=== PATIENT | female | born 1985 | race Caucasian/White ===

== ENCOUNTER 2016-09-05 10:21 | Emergency (ER) | payer SELFPAY ==
--- NOTE | 2016-09-05 10:51 | ED ---
Nausea/Vomiting/Diarrhea HPI - General Chief complaint: Nausea/Vomiting/Diarrhea Stated complaint: FLU LIKE SYMPTOMS Source: patient Mode of arrival: ambulatory Limitations: no limitations - History of Present Illness Initial comments: Patient is a 31-year-old female presents for evaluation for body aches, nonproductive cough, sore throat, nausea, vomiting over the past 2-3 days. Past medical history as below. Patient states that she did not get her flu shot this year. She developed the a for mention symptoms 2-3 days ago. She states that she has aches all over her body. She has a very sore throat states that it is hard for her to swallow. She is very nauseous. She has thrown up 4 times with phlegm/stomach contents. States that she feels very weak and fatigued. No documented fevers at home. She does have chills. No urinary symptoms. No diarrhea. No abdominal pain. Positive sick contacts of her son. Patient states that she has a known history of anxiety. She is tearful at bedside and states that she cannot miss work. Does not have a primary care physician and states that she needs to follow-up with someone. She denies headaches, changes in vision, chest pain, shortness of breath, abdominal pain, pain burning with urination. - Related Data Home Medications Medication Instructions Recorded Confirmed Diazepam [Valium] 5 mg PO ONCE PRN 09/05/16 09/05/16 Percocet(Unknown) 1 tab PO ONCE PRN 09/05/16 09/05/16 Previous Rx's Medication Instructions Recorded Ondansetron Odt [Zofran Odt] 4 mg PO Q12HR PRN #10 tab 09/05/16 Allergies Allergy/AdvReac Type Severity Reaction Status Date / Time No Known Allergies Allergy Verified 09/05/16 10:54 Review of Systems ROS Statement: Those systems with pertinent positive or pertinent negative responses have been documented in the HPI. ROS Other: All systems not noted in ROS Statement are negative. Past Medical History Past Medical History: Fibromyalgia History of Any Multi-Drug Resistant Organisms: None Reported Past Surgical History: Appendectomy, Section Additional Past Surgical History / Comment(s): left ovary removed Past Psychological History: Anxiety, Depression Smoking Status: Current every day smoker Past Alcohol Use History: Rare Past Drug Use History: None Reported General Exam Limitations: no limitations General appearance: alert, in no apparent distress, other (Tearful at bedside) Head exam: Present: atraumatic, normocephalic, normal inspection Eye exam: Present: normal appearance, PERRL, EOMI. Absent: scleral icterus, conjunctival injection, periorbital swelling ENT exam: Present: normal exam, mucous membranes dry, other (Posterior oropharynx is erythematous. No tonsillar swelling or exudates.) Neck exam: Present: normal inspection, lymphadenopathy, other (Bilateral nontender anterior cervical lymphadenopathy). Absent: tenderness, meningismus Respiratory exam: Present: normal lung sounds bilaterally, other (Clear bilaterally. No wheezes rales or rhonchi.). Absent: respiratory distress, wheezes, rales, rhonchi, stridor Cardiovascular Exam: Present: regular rate, normal rhythm, normal heart sounds. Absent: systolic murmur, diastolic murmur, rubs, gallop, clicks GI/Abdominal exam: Present: soft, normal bowel sounds, other (Abdomen is soft and nontender. Negative Brooks sign. Negative McBurney sign. Negative Rovsing sign. No peritoneal signs.). Absent: distended, tenderness, guarding, rebound, rigid Extremities exam: Present: normal inspection, full ROM, normal capillary refill. Absent: tenderness, pedal edema, joint swelling, calf tenderness Back exam: Present: normal inspection Neurological exam: Present: alert, oriented X3, CN II-XII intact Psychiatric exam: Present: normal affect, normal mood Skin exam: Present: warm, dry, intact, normal color. Absent: rash Course Vital Signs 09/05/16 09/05/16 10:29 12:59 Temperature 97.8 F 98.7 F Pulse Rate 78 73 Respiratory 17 16 Rate Blood Pressure 110/68 105/70 O2 Sat by Pulse 99 100 Oximetry Medical Decision Making - Medical Decision Making Patient presents for evaluation for flulike symptoms. Is anxious and tearful at bedside because she states that she cannot miss work and is having a lot of stress at home. Positive sick contacts with similar symptoms. Did not get a flu shot this year. She said having 2 days of these symptoms. We'll order basic labs with urinalysis, IV fluids, Toradol, Decadron, Zofran and reevaluate. -Laboratory studies as below. Largely unremarkable. Influenza negative. No evidence of urinary tract infection. Not . We'll reevaluate once fluids complete that she starting to feel little bit better and is not tearful. 1240: Reevaluated the patient. She states that she feels better. Her throat is a little bit less sore in her body aches are a little less as well. No longer nauseous. No episodes of vomiting here. Discussed that the patient most likely has a viral illness. Does not appear to be influenza at this time but her symptoms are roughly consistent. Encourage plenty of fluids. Tylenol and Motrin when necessary pain. We'll discharge home with a course of Zofran for nausea and vomiting. Encourage frequent handwashing. [place] diet. We'll provide a primary care physician for follow-up. Discussed signs and symptoms on when to return to the emergency department for further evaluation. Comfortable with discharge home and follow-up. - Lab Data Result diagrams: 09/05/16 11:20 09/05/16 11:20 Lab Results 09/05/16 09/05/16 09/05/16 Range/Units 11:20 11:20 11:20 WBC 6.4 (3.8-10.6) k/uL RBC 4.33 (3.80-5.40) m/uL Hgb 12.9 (11.4-16.0) gm/dL Hct 39.0 (34.0-46.0) % MCV 90.3 (80.0-100.0) fL MCH 29.8 (25.0-35.0) pg MCHC 33.0 (31.0-37.0) g/dL RDW 15.1 (11.5-15.5) % Plt Count 257 (150-450) k/uL Neutrophils % 68 % Lymphocytes % 19 % Monocytes % 8 % Eosinophils % 1 % Basophils % 1 % Neutrophils # 4.3 (1.3-7.7) k/uL Lymphocytes # 1.2 (1.0-4.8) k/uL Monocytes # 0.5 (0-1.0) k/uL Eosinophils # 0.1 (0-0.7) k/uL Basophils # 0.1 (0-0.2) k/uL Sodium 142 (137-145) mmol/L Potassium 4.4 (3.5-5.1) mmol/L Chloride 108 H (98-107) mmol/L Carbon Dioxide 23 (22-30) mmol/L Anion Gap 11 mmol/L BUN 17 (7-17) mg/dL Creatinine 0.70 (0.52-1.04) mg/dL Est GFR (MDRD) Af Amer >60 (>60 ml/min/1.73 sqM) Est GFR (MDRD) Non-Af >60 (>60 ml/min/1.73 sqM) Glucose 81 (74-99) mg/dL Calcium 9.2 (8.4-10.2) mg/dL Magnesium 1.8 (1.6-2.3) mg/dL Urine Color Urine Appearance (Clear) Urine pH (5.0-8.0) Ur Specific [place] (1.001-1.035) Urine Protein (Negative) Urine Glucose (UA) (Negative) Urine Ketones (Negative) Urine Blood (Negative) Urine Nitrate (Negative) Urine Bilirubin (Negative) Urine Urobilinogen (<2.0) mg/dL Ur Leukocyte Esterase (Negative) Urine WBC (0-5) /hpf Ur Squamous Epith Cells (0-4) /hpf Urine Bacteria (None) /hpf Urine Mucus (None) /hpf Urine HCG, Qual (Not Detectd) Influenza Type A RNA Not Detected (Not Detectd) Influenza Type B (PCR) Not Detected (Not Detectd) 09/05/16 09/05/16 Range/Units 11:20 11:20 WBC (3.8-10.6) k/uL RBC (3.80-5.40) m/uL Hgb (11.4-16.0) gm/dL Hct (34.0-46.0) % MCV (80.0-100.0) fL MCH (25.0-35.0) pg MCHC (31.0-37.0) g/dL RDW (11.5-15.5) % Plt Count (150-450) k/uL Neutrophils % % Lymphocytes % % Monocytes % % Eosinophils % % Basophils % % Neutrophils # (1.3-7.7) k/uL Lymphocytes # (1.0-4.8) k/uL Monocytes # (0-1.0) k/uL Eosinophils # (0-0.7) k/uL Basophils # (0-0.2) k/uL Sodium (137-145) mmol/L Potassium (3.5-5.1) mmol/L Chloride (98-107) mmol/L Carbon Dioxide (22-30) mmol/L Anion Gap mmol/L BUN (7-17) mg/dL Creatinine (0.52-1.04) mg/dL Est GFR (MDRD) Af Amer (>60 ml/min/1.73 sqM) Est GFR (MDRD) Non-Af (>60 ml/min/1.73 sqM) Glucose (74-99) mg/dL Calcium (8.4-10.2) mg/dL Magnesium (1.6-2.3) mg/dL Urine Color Yellow Urine Appearance Cloudy H (Clear) Urine pH 6.0 (5.0-8.0) Ur Specific [place] 1.016 (1.001-1.035) Urine Protein Negative (Negative) Urine Glucose (UA) Negative (Negative) Urine Ketones Negative (Negative) Urine Blood Negative (Negative) Urine Nitrate Negative (Negative) Urine Bilirubin Negative (Negative) Urine Urobilinogen <2.0 (<2.0) mg/dL Ur Leukocyte Esterase Negative (Negative) Urine WBC 1 (0-5) /hpf Ur Squamous Epith Cells 9 H (0-4) /hpf Urine Bacteria Rare H (None) /hpf Urine Mucus Rare H (None) /hpf Urine HCG, Qual Not Detected (Not Detectd) Influenza Type A RNA (Not Detectd) Influenza Type B (PCR) (Not Detectd) Disposition Clinical Impression: Viral illness Disposition: HOME SELF-CARE Condition: Good Instructions: Viral Syndrome (ED) Prescriptions: Ondansetron Odt [Zofran Odt] 4 mg PO Q12HR PRN #10 tab PRN Reason: Nausea And Vomiting Referrals: None,Stated [Primary Care Provider] - 1-2 days Daniel Neely DO [STAFF PHYSICIAN] - 1-2 days
[2016-09-05] MEDS ORDERED: ONDANSETRON 4 MG/2 ML VIAL IVP STA (10:59)
[2016-09-05] MEDS ORDERED: KETOROLAC 30 MG/ML 1 ML VIAL IVP STA (10:59)
[2016-09-05] MEDS ORDERED: SODIUM CHLORIDE 0.9% 1,000 ML IV ONE (10:59)
[2016-09-05] MEDS ORDERED: DEXAMETHASONE SOD PHOSPHATE 10 MG/ML 1 ML VIAL IV STA (10:59)
[2016-09-05 11:46] LABS: Basophils # (A) 0.1 k/uL (0-0.2); Basophils % (A) 1 %; CH 28.7; CHCM 31.9; Eosinophils # (A) 0.1 k/uL (0-0.7); Eosinophils % (A) 1 %; HDW 2.51; HGB 12.9 gm/dL (11.4-16.0); Luc # (Auto) 0.21; Luc % (Auto) 3; Lymphocytes # (A) 1.2 k/uL (1.0-4.8); Lymphocytes % (A) 19 %; MCH 29.8 pg (25.0-35.0); MCV 90.3 fL (80.0-100.0); Mean Platelet Volume 7.9; Monocytes # (A) 0.5 k/uL (0-1.0); Monocytes % (A) 8 %; Neutrophils # (A) 4.3 k/uL (1.3-7.7); Neutrophils % (A) 68 %; RBC 4.33 m/uL (3.80-5.40); RDW 15.1 % (11.5-15.5); WBC 6.4 k/uL (3.8-10.6); WBC (Perox) 6.38
[2016-09-05 11:47] LABS: Appearance,Urine Cloudy (Clear); Bacteria,Urine Rare /hpf; Bilirubin,Urine Negative (Negative); Glucose,Urine (UA) Negative (Negative); Ketones,Urine Negative (Negative); Leukocyte Esterase,Urine Negative (Negative); Mucus,Urine Rare /hpf; Nitrite,Urine Negative (Negative); Particle Count 3661; Protein,Urine Negative (Negative); Specific Gravity,Urine 1.016 (1.001-1.035); Squamous Epithelial Cell,Urine 9 /hpf (0-4); UA Billing (MACRO vs. MICRO) MICRO; Urobilinogen,Urine <2.0 mg/dL (<2.0); WBC,Urine 1 /hpf (0-5)
[2016-09-05 12:00] LABS: Anion Gap 11 mmol/L; Blood Urea Nitrogen 17 mg/dL (7-17); Calcium 9.2 mg/dL (8.4-10.2); Carbon Dioxide 23 mmol/L (22-30); Chloride 108 mmol/L (98-107); Glucose 81 mg/dL (74-99); Magnesium 1.8 mg/dL (1.6-2.3); Non-African American GFR(MDRD) >60 (>60 ml/min/1.73 sqM); Potassium 4.4 mmol/L (3.5-5.1); Sodium 142 mmol/L (137-145)
[2016-09-05 13:00] VITALS: BP 105/70; PULSE 73; RESP 16; TEMP 98.7
== END 2016-09-05 13:04 | disposition home or self-care (01) ==
LOC: EC 10:21
DX: B34.9 Viral infection, unspecified (principal); F17.200 Nicotine dependence, unspecified, uncomplicated
CPT/HCPCS: 99284; 96374; 96375 ×2; 96361; 36415; 80048; 83735; 85025; 81001; 81025; 87502; J1100; J2405; J1885

== ENCOUNTER 2017-04-06 10:05 | Emergency (ER) | payer OTHER ==
[2017-04-06] MEDS ORDERED: IPRATROPIUM-ALBUTEROL 3 ML NEB INHALATION STA (10:38)
--- NOTE | 2017-04-06 10:41 | ED ---
General Adult HPI - General Chief complaint: Upper Respiratory Infection Stated complaint: Cough Time Seen by Provider: 04/06/17 10:34 Source: patient, RN notes reviewed Mode of arrival: ambulatory Limitations: no limitations - History of Present Illness Initial comments: Patient is a pleasant 32-year-old female presenting to the emergency Department with cough and sore throat. Onset of symptoms was a couple of days ago. Patient has generalized body aches. Patient states she has congestion in her chest. Patient does feels short of breath. Patient states she has occasional mild sputum. Patient is unclear whether or not she has fevers. Patient complains of lumps in her throat that are tender and points to her lymph nodes. Sore throat discomfort increases with swallowing. - Related Data Previous Rx's Medication Instructions Recorded Albuterol Inhaler [Ventolin Hfa 2 puff INHALATION Q4HR PRN #1 04/06/17 Inhaler] inhaler Azithromycin [Zithromax Z-pack] 250 mg PO DIRECTED #6 tab 04/06/17 Allergies Allergy/AdvReac Type Severity Reaction Status Date / Time No Known Allergies Allergy Verified 04/06/17 10:32 Review of Systems ROS Statement: Those systems with pertinent positive or pertinent negative responses have been documented in the HPI. ROS Other: All systems not noted in ROS Statement are negative. Constitutional: Reports: other (Myalgias) Eyes: Denies: eye pain ENT: Reports: throat pain, congestion. Denies: ear pain Respiratory: Reports: cough, dyspnea Cardiovascular: Denies: chest pain Endocrine: Denies: fatigue Gastrointestinal: Denies: abdominal pain Genitourinary: Denies: dysuria Musculoskeletal: Denies: back pain Skin: Denies: rash Neurological: Denies: weakness Past Medical History Past Medical History: Fibromyalgia Additional Past Medical History / Comment(s): Ovarian cancer History of Any Multi-Drug Resistant Organisms: None Reported Past Surgical History: Appendectomy, Section, Tubal Ligation Additional Past Surgical History / Comment(s): left ovary removed Past Psychological History: Anxiety, Depression Smoking Status: Current every day smoker Past Alcohol Use History: Rare Past Drug Use History: None Reported General Exam Limitations: no limitations General appearance: alert, in no apparent distress Head exam: Present: atraumatic Eye exam: Present: normal appearance, PERRL ENT exam: Present: other (Mild pharyngeal erythema) Neck exam: Present: tenderness (Tender lymph nodes anterior posterior cervical) , lymphadenopathy. Absent: meningismus Respiratory exam: Present: rhonchi Cardiovascular Exam: Present: regular rate, normal rhythm GI/Abdominal exam: Present: soft. Absent: tenderness Extremities exam: Present: normal inspection. Absent: calf tenderness Back exam: Present: normal inspection Neurological exam: Present: alert Psychiatric exam: Present: normal affect, normal mood Skin exam: Present: normal color Course Vital Signs 04/06/17 04/06/17 04/06/17 10:09 11:08 11:17 Temperature 97.9 F Pulse Rate 107 H 100 96 Respiratory 22 Rate Blood Pressure 112/74 O2 Sat by Pulse 100 Oximetry Medical Decision Making - Radiology Data Radiology results: image reviewed (Bronchitis. No pneumonia) Disposition Clinical Impression: Bronchitis, Pharyngitis Disposition: HOME SELF-CARE Condition: Stable Instructions: Acute Bronchitis (ED) Additional Instructions: Please follow-up with primary care physician in the next couple of days for recheck. Return for difficulty in breathing, uncontrolled fever, worsening symptoms or other concerns. Discontinue smoking. [id number] Tylenol and Motrin as needed. Prescriptions: Albuterol Inhaler [Ventolin Hfa Inhaler] 2 puff INHALATION Q4HR PRN #1 inhaler PRN Reason: Dyspnea Azithromycin [Zithromax Z-pack] 250 mg PO DIRECTED #6 tab Referrals: Zoey Zimmerman MD [REFERRING] - 1-2 days Caity Evans MD [STAFF PHYSICIAN] - 1-2 days Time of Disposition: 11:50
[2017-04-06] MEDS ORDERED: ACETAMINOPHEN TAB 325 MG TAB PO STA (10:50)
[2017-04-06] MEDS ORDERED: IBUPROFEN 400 MG TAB PO STA (10:50)
--- NOTE | 2017-04-06 11:29 | XR ---
EXAMINATION TYPE: XR chest 2V DATE OF EXAM: 04/06/2017 HISTORY: cough. REFERENCE: NONE. FINDINGS: There are mild, increased perihilar markings. There is no focal consolidation. The heart is not enlarged. Pleural spaces are clear. IMPRESSION: FINDINGS CONSISTENT WITH BUT NOT DIAGNOSTIC OF BRONCHITIS.
[2017-04-06 12:00] VITALS: BP 98/59; PULSE 70; RESP 18; TEMP 98.6
== END 2017-04-06 11:58 | disposition home or self-care (01) ==
LOC: EC 10:05
DX: J40 Bronchitis, not specified as acute or chronic (principal); J02.9 Acute pharyngitis, unspecified; F17.200 Nicotine dependence, unspecified, uncomplicated; Z85.43 Personal history of malignant neoplasm of ovary; Z90.721 Acquired absence of ovaries, unilateral
CPT/HCPCS: 71020; 94640; 99283

== ENCOUNTER 2019-04-13 15:31 | Inpatient (IN) | payer OTHER ==
[2019-04-13] MEDS ORDERED: LORazepam 2 MG/ML INJ IM STA ×2 (16:12→20:17)
[2019-04-13 17:02] LABS: Basophils # (A) 0.1 k/uL (0-0.2); Basophils % (A) 1 %; Eosinophils # (A) 0.2 k/uL (0-0.7); Eosinophils % (A) 2 %; HCT 42.1 % (34.0-46.0); HGB 13.3 gm/dL (11.4-16.0); Lymphocytes # (A) 2.3 k/uL (1.0-4.8); Lymphocytes % (A) 23 %; MCH 30.1 pg (25.0-35.0); MCHC 31.5 g/dL (31.0-37.0); MCV 95.6 fL (80.0-100.0); Monocytes # (A) 0.4 k/uL (0-1.0); Monocytes % (A) 4 %; Neutrophils # (A) 6.6 k/uL (1.3-7.7); Neutrophils % (A) 66 %; Platelet Count 228 k/uL (150-450); RBC 4.41 m/uL (3.80-5.40); RDW 14.7 % (11.5-15.5)
[2019-04-13 17:04] LABS: Appearance,Urine Cloudy (Clear); Bilirubin,Urine Negative (Negative); Blood,Urine Trace (Negative); Calcium Oxalate Crystals,Urine Rare /hpf; Color,Urine Yellow; Glucose,Urine (UA) Negative (Negative); Ketones,Urine Negative (Negative); Leukocyte Esterase,Urine Negative (Negative); Mucus,Urine Few /hpf; Nitrite,Urine Negative (Negative); Protein,Urine Trace (Negative); RBC,Urine 22 /hpf (0-5); Specific Gravity,Urine 1.029 (1.001-1.035); Squamous Epithelial Cell,Urine 13 /hpf (0-4); WBC,Urine 3 /hpf (0-5)
[2019-04-13] MEDS ORDERED: ACTIVATED CHARCOAL 50 GM/240 ML BOTTLE PO STA (17:04)
[2019-04-13 17:12] LABS: Acetaminophen <10.0 ug/mL; African American GFR (CKD) >90 (>60 ml/min/1.73 sqM); Alcohol <10 mg/dL; Anion Gap 10 mmol/L; Blood Urea Nitrogen 10 mg/dL (7-17); Calcium 9.3 mg/dL (8.4-10.2); Carbon Dioxide 20 mmol/L (22-30); Chloride 110 mmol/L (98-107); Glucose 80 mg/dL (74-99); Salicylate 28.6 mg/dL; Sodium 140 mmol/L (137-145)
[2019-04-13 17:15] LABS: Amphetamine Screen,Urine Detected (NotDetected); Barbiturate Screen,Urine Not Detected (NotDetected); Benzodiazepines Screen,Urine Not Detected (NotDetected); Cocaine Screen,Urine Not Detected (NotDetected); Methadone Screen, Urine Not Detected (NotDetected); Opiate Screen,Urine Not Detected (NotDetected); Oxycodone Screen, Urine Not Detected (NotDetected); Phencyclidine Screen,Urine Not Detected (NotDetected); Tricyclic Antidepressant,Urine Not Detected (NotDetected); Urn Cannabinoid Scrn Not Detected (NotDetected)
[2019-04-13] MEDS ORDERED: NEOMYCIN-BACITRACIN-POLY OINT 1 APPLIC/EACH PACKET TOPICAL STA (18:36)
--- NOTE | 2019-04-13 18:36 | ED ---
Psych HPI - General Chief Complaint: Psychiatric Symptoms Stated Complaint: Mental Health Time Seen by Provider: 04/13/19 16:04 Source: patient, family Mode of arrival: ambulatory - History of Present Illness Initial Comments: This 34-year-old white female presents with a complaint of severe depression with suicidal ideations. She states that she has a long-standing history of depression but it is been worse over the last 1 month. She states that she cut her left arm today. She also took some Tylenol and aspirin. She states that she took approximately 4 Tylenol and 6 aspirin 2 hours prior to arrival. She states that she just does not want to be here anymore. She also feels very anxious. She does not take any medications for her psychiatric conditions. She was told in the past that she was diagnosed with bipolar disorder as well as posttraumatic stress disorder. She denies any current medical complaints. She denies any possibility of . No other complaints or modifying factors. - Related Data Home Medications Medication Instructions Recorded Confirmed No Known Home Medications 04/13/19 04/13/19 Allergies Allergy/AdvReac Type Severity Reaction Status Date / Time No Known Allergies Allergy Verified 04/13/19 16:19 Review of Systems ROS Statement: Those systems with pertinent positive or pertinent negative responses have been documented in the HPI. ROS Other: All systems not noted in ROS Statement are negative. Past Medical History Past Medical History: Fibromyalgia Additional Past Medical History / Comment(s): Ovarian cancer History of Any Multi-Drug Resistant Organisms: None Reported Past Surgical History: Appendectomy, Section, Tubal Ligation Additional Past Surgical History / Comment(s): left ovary removed Past Psychological History: Anxiety, Depression Smoking Status: Current every day smoker Past Alcohol Use History: Rare Past Drug Use History: None Reported General Exam - General Exam Comments Initial Comments: GENERAL: The patient is well nourished and well hydrated. VITAL SIGNS: Heart rate, blood pressure, respiratory rate reviewed as recorded in nurse's notes. EYES: Pupils are round and reactive. Extraocular movements are intact. No conjunctival / lid redness or swelling. ENT: No external evidence of injury, swelling, or ecchymosis. Airway is patent. Throat is clear. NECK: Nontender. No swelling or evidence of injury. No subcutaneous emphysema. Trachea is midline. No thyroid mass. HEART: Regular rate and rhythm. Good peripheral pulses. LUNGS/CHEST: Breath sounds clear and equal bilaterally. No rales, rhonchi, or wheezes. No ecchymosis, subcutaneous emphysema, or tenderness. ABDOMEN: Abdomen soft without tenderness. No palpable masses or organomegaly. No peritoneal signs. No abdominal wall swelling or ecchymosis. EXTREMITIES: No extremity tenderness. Normal muscle tone and function. No thoracolumbar tenderness. NEUROLOGIC: Sensation is grossly intact. Cranial nerve exam reveals face is symmetrical, tongue is midline, speech is clear. SKIN: There is an abrasion noted to the left arm. No induration or masses noted. PSYCHIATRIC: Alert and oriented. Patient appears to be very anxious. Limitations: no limitations Course Vital Signs 04/13/19 04/13/19 15:42 19:45 Temperature 98.1 F Pulse Rate 90 76 Respiratory 18 18 Rate Blood Pressure 138/87 99/51 O2 Sat by Pulse 100 97 Oximetry Medical Decision Making - Medical Decision Making The patient was seen and examined. All diagnostics were reviewed. The salicylate level is elevated. A repeat will be drawn 4 hours from the initial. There is a positive methamphetamine screen. Remainder of labs are essentially within normal limits. The nurse did discuss with poison control and they recommended charcoal and this is ordered. The case was discussed with the psychiatric nurse and they would like to admit the patient to the hospital for further psychiatric treatment. The certification form is filled out and patient will be admitted to our hospital. - Lab Data Result diagrams: 04/13/19 16:46 04/13/19 16:46 Lab Results 04/13/19 04/13/19 04/13/19 Range/Units 16:46 16:46 16:46 WBC 10.0 (3.8-10.6) k/uL RBC 4.41 (3.80-5.40) m/uL Hgb 13.3 (11.4-16.0) gm/dL Hct 42.1 (34.0-46.0) % MCV 95.6 (80.0-100.0) fL MCH 30.1 (25.0-35.0) pg MCHC 31.5 (31.0-37.0) g/dL RDW 14.7 (11.5-15.5) % Plt Count 228 (150-450) k/uL Neutrophils % 66 % Lymphocytes % 23 % Monocytes % 4 % Eosinophils % 2 % Basophils % 1 % Neutrophils # 6.6 (1.3-7.7) k/uL Lymphocytes # 2.3 (1.0-4.8) k/uL Monocytes # 0.4 (0-1.0) k/uL Eosinophils # 0.2 (0-0.7) k/uL Basophils # 0.1 (0-0.2) k/uL Sodium 140 (137-145) mmol/L Potassium 4.0 (3.5-5.1) mmol/L Chloride 110 H (98-107) mmol/L Carbon Dioxide 20 L (22-30) mmol/L Anion Gap 10 mmol/L BUN 10 (7-17) mg/dL Creatinine 0.67 (0.52-1.04) mg/dL Est GFR (CKD-EPI)AfAm >90 (>60 ml/min/1.73 sqM) Est GFR (CKD-EPI)NonAf >90 (>60 ml/min/1.73 sqM) Glucose 80 (74-99) mg/dL Calcium 9.3 (8.4-10.2) mg/dL Urine Color Yellow Urine Appearance Cloudy H (Clear) Urine pH 6.0 (5.0-8.0) Ur Specific [place] 1.029 (1.001-1.035) Urine Protein Trace H (Negative) Urine Glucose (UA) Negative (Negative) Urine Ketones Negative (Negative) Urine Blood Trace H (Negative) Urine Nitrite Negative (Negative) Urine Bilirubin Negative (Negative) Urine Urobilinogen 2.0 (<2.0) mg/dL Ur Leukocyte Esterase Negative (Negative) Urine RBC 22 H (0-5) /hpf Urine WBC 3 (0-5) /hpf Ur Squamous Epith Cells 13 H (0-4) /hpf Calcium Oxalate Crystal Rare H (None) /hpf Urine Mucus Few H (None) /hpf Urine HCG, Qual (Not Detectd) Salicylates 28.6 mg/dL Urine Opiates Screen Not Detected (NotDetected) Ur Oxycodone Screen Not Detected (NotDetected) Urine Methadone Screen Not Detected (NotDetected) Ur Propoxyphene Screen Not Detected (NotDetected) Acetaminophen <10.0 ug/mL Ur Barbiturates Screen Not Detected (NotDetected) U Tricyclic Antidepress Not Detected (NotDetected) Ur Phencyclidine Scrn Not Detected (NotDetected) Ur Amphetamines Screen Detected H (NotDetected) U Methamphetamines Scrn Detected H (NotDetected) U Benzodiazepines Scrn Not Detected (NotDetected) Urine Cocaine Screen Not Detected (NotDetected) U Marijuana (THC) Screen Not Detected (NotDetected) Serum Alcohol <10 mg/dL 04/13/19 04/13/19 Range/Units 16:46 19:30 WBC (3.8-10.6) k/uL RBC (3.80-5.40) m/uL Hgb (11.4-16.0) gm/dL Hct (34.0-46.0) % MCV (80.0-100.0) fL MCH (25.0-35.0) pg MCHC (31.0-37.0) g/dL RDW (11.5-15.5) % Plt Count (150-450) k/uL Neutrophils % % Lymphocytes % % Monocytes % % Eosinophils % % Basophils % % Neutrophils # (1.3-7.7) k/uL Lymphocytes # (1.0-4.8) k/uL Monocytes # (0-1.0) k/uL Eosinophils # (0-0.7) k/uL Basophils # (0-0.2) k/uL Sodium (137-145) mmol/L Potassium (3.5-5.1) mmol/L Chloride (98-107) mmol/L Carbon Dioxide (22-30) mmol/L Anion Gap mmol/L BUN (7-17) mg/dL Creatinine (0.52-1.04) mg/dL Est GFR (CKD-EPI)AfAm (>60 ml/min/1.73 sqM) Est GFR (CKD-EPI)NonAf (>60 ml/min/1.73 sqM) Glucose (74-99) mg/dL Calcium (8.4-10.2) mg/dL Urine Color Urine Appearance (Clear) Urine pH (5.0-8.0) Ur Specific [place] (1.001-1.035) Urine Protein (Negative) Urine Glucose (UA) (Negative) Urine Ketones (Negative) Urine Blood (Negative) Urine Nitrite (Negative) Urine Bilirubin (Negative) Urine Urobilinogen (<2.0) mg/dL Ur Leukocyte Esterase (Negative) Urine RBC (0-5) /hpf Urine WBC (0-5) /hpf Ur Squamous Epith Cells (0-4) /hpf Calcium Oxalate Crystal (None) /hpf Urine Mucus (None) /hpf Urine HCG, Qual Not Detected (Not Detectd) Salicylates 25.6 mg/dL Urine Opiates Screen (NotDetected) Ur Oxycodone Screen (NotDetected) Urine Methadone Screen (NotDetected) Ur Propoxyphene Screen (NotDetected) Acetaminophen ug/mL Ur Barbiturates Screen (NotDetected) U Tricyclic Antidepress (NotDetected) Ur Phencyclidine Scrn (NotDetected) Ur Amphetamines Screen (NotDetected) U Methamphetamines Scrn (NotDetected) U Benzodiazepines Scrn (NotDetected) Urine Cocaine Screen (NotDetected) U Marijuana (THC) Screen (NotDetected) Serum Alcohol mg/dL Disposition Clinical Impression: Depression, Acute anxiety, Suicidal ideations, Overdose, Abrasion Disposition: ADMITTED IP TO THIS [facility] Condition: Fair Is patient prescribed a controlled substance at d/c from ED?: No Time of Disposition: 23:27 Decision Date: 04/13/19 Decision Time: 23:27
[2019-04-13] MEDS ORDERED: NICOTINE 21MG/24HR PATCH TRANSDERM STA (19:40)
[2019-04-14] MEDS ORDERED: MAGNESIUM HYDROXIDE 2,400 MG/10 ML CUP PO PRN (00:07)
[2019-04-14] MEDS ORDERED: MAG HYDROX/AL HYDROX/SIMETH 30 ML CUP PO PRN (00:07)
[2019-04-14] MEDS ORDERED: LORazepam 2 MG/ML INJ IM PRN (00:09)
[2019-04-14] MEDS: NICOTINE 21MG/24HR PATCH TRANSDERM SCH (09:08)
--- NOTE | 2019-04-14 14:01 | P.HP ---
Psychiatric H&P - . H&P Date: 04/14/19 History & Physical: Allergies Allergy/AdvReac Type Severity Reaction Status Date / Time No Known Allergies Allergy Verified 04/13/19 16:19 Vital Signs Temp 97.2 F L 04/14/19 00:45 Pulse 96 04/14/19 00:45 Resp 18 04/14/19 00:45 BP 105/68 04/14/19 00:45 Pulse Ox 99 04/14/19 00:45 Intake & Output 04/13/19 04/14/19 04/14/19 18:59 06:59 18:59 Weight 54.431 kg Laboratory Last Values WBC 10.0 k/uL (3.8-10.6) 04/13/19 16:46 RBC 4.41 m/uL (3.80-5.40) 04/13/19 16:46 Hgb 13.3 gm/dL (11.4-16.0) 04/13/19 16:46 Hct 42.1 % (34.0-46.0) 04/13/19 16:46 MCV 95.6 fL (80.0-100.0) 04/13/19 16:46 MCH 30.1 pg (25.0-35.0) 04/13/19 16:46 MCHC 31.5 g/dL (31.0-37.0) 04/13/19 16:46 RDW 14.7 % (11.5-15.5) 04/13/19 16:46 Plt Count 228 k/uL (150-450) 04/13/19 16:46 Neutrophils % 66 % 04/13/19 16:46 Lymphocytes % 23 % 04/13/19 16:46 Monocytes % 4 % 04/13/19 16:46 Eosinophils % 2 % 04/13/19 16:46 Basophils % 1 % 04/13/19 16:46 Neutrophils # 6.6 k/uL (1.3-7.7) 04/13/19 16:46 Lymphocytes # 2.3 k/uL (1.0-4.8) 04/13/19 16:46 Monocytes # 0.4 k/uL (0-1.0) 04/13/19 16:46 Eosinophils # 0.2 k/uL (0-0.7) 04/13/19 16:46 Basophils # 0.1 k/uL (0-0.2) 04/13/19 16:46 Sodium 140 mmol/L (137-145) 04/13/19 16:46 Potassium 4.0 mmol/L (3.5-5.1) 04/13/19 16:46 Chloride 110 mmol/L (98-107) H 04/13/19 16:46 Carbon Dioxide 20 mmol/L (22-30) L 04/13/19 16:46 Anion Gap 10 mmol/L 04/13/19 16:46 BUN 10 mg/dL (7-17) 04/13/19 16:46 Creatinine 0.67 mg/dL (0.52-1.04) 04/13/19 16:46 Est GFR (CKD-EPI)AfAm >90 (>60 ml/min/1.73 sqM) 04/13/19 16:46 Est GFR (CKD-EPI)NonAf >90 (>60 ml/min/1.73 sqM) 04/13/19 16:46 Glucose 80 mg/dL (74-99) 04/13/19 16:46 Calcium 9.3 mg/dL (8.4-10.2) 04/13/19 16:46 Urine Color Yellow 04/13/19 16:46 Urine Appearance Cloudy (Clear) H 04/13/19 16:46 Urine pH 6.0 (5.0-8.0) 04/13/19 16:46 Ur Specific [place] 1.029 (1.001-1.035) 04/13/19 16:46 Urine Protein Trace (Negative) H 04/13/19 16:46 Urine Glucose (UA) Negative (Negative) 04/13/19 16:46 Urine Ketones Negative (Negative) 04/13/19 16:46 Urine Blood Trace (Negative) H 04/13/19 16:46 Urine Nitrite Negative (Negative) 04/13/19 16:46 Urine Bilirubin Negative (Negative) 04/13/19 16:46 Urine Urobilinogen 2.0 mg/dL (<2.0) 04/13/19 16:46 Ur Leukocyte Esterase Negative (Negative) 04/13/19 16:46 Urine RBC 22 /hpf (0-5) H 04/13/19 16:46 Urine WBC 3 /hpf (0-5) 04/13/19 16:46 Ur Squamous Epith Cells 13 /hpf (0-4) H 04/13/19 16:46 Calcium Oxalate Crystal Rare /hpf (None) H 04/13/19 16:46 Urine Mucus Few /hpf (None) H 04/13/19 16:46 Urine HCG, Qual Not Detected (Not Detectd) 04/13/19 16:46 Salicylates 25.6 mg/dL 04/13/19 19:30 Urine Opiates Screen Not Detected (NotDetected) 04/13/19 16:46 Ur Oxycodone Screen Not Detected (NotDetected) 04/13/19 16:46 Urine Methadone Screen Not Detected (NotDetected) 04/13/19 16:46 Ur Propoxyphene Screen Not Detected (NotDetected) 04/13/19 16:46 Acetaminophen <10.0 ug/mL 04/13/19 16:46 Ur Barbiturates Screen Not Detected (NotDetected) 04/13/19 16:46 U Tricyclic Antidepress Not Detected (NotDetected) 04/13/19 16:46 Ur Phencyclidine Scrn Not Detected (NotDetected) 04/13/19 16:46 Ur Amphetamines Screen Detected (NotDetected) H 04/13/19 16:46 U Methamphetamines Scrn Detected (NotDetected) H 04/13/19 16:46 U Benzodiazepines Scrn Not Detected (NotDetected) 04/13/19 16:46 Urine Cocaine Screen Not Detected (NotDetected) 04/13/19 16:46 U Marijuana (THC) Screen Not Detected (NotDetected) 04/13/19 16:46 Serum Alcohol <10 mg/dL 04/13/19 16:46 04/14/19 13:45 IDENTIFYING DATA: Patient is a 34-year-old female who has 6 kids with 3 being autistic, currently lives with her ex- who is now her boyfriend in an apartment and collects state aid and is unemployed. HPI: Patient presented to the hospital with severe chronic depression with yeny cidal ideations and attempt. Patient was presented on a petition by her [id number]-law who states that patient has been severely depressed and anxious and was threatening suicide, patient cut her wrists and took pills. Patient was agreeable to be seen today for interview was directable however was tearful and appeared to be depressed during the interview. Patient states that she's had an increase in her depression for the past month and claims that yesterday she had a "really bad day" and states that people around her were telling her that she is not good enough and that she needs help. She states that her boyfriend was trying to tell her to go to counseling however she did not want to go. She states that she cut her wrist with a scissors and also talk for Tylenols in 6 aspirins in an overdose attempt. She admits to chronic anxiety going on for years. She admits to ongoing depression and spoke about having lots of responsibility and her children being dependent on her especially her 3 autistic kids. She states that she does not have much help in taking care of her children by others. She claims that she has or concentration however denies any guilt. At this time she denies any manic symptoms or any manic episodes in the past. She admits to poor sleep at night and poor appetite. Patient denies any suicidal or homicidal ideations intent or plan. At this time patient denies any auditory or visual hallucinations. Patient denies any flight of ideas racing thoughts and increased in goal directed behavior. Patient admits to using methamphetamine in the past however claims that she's been sober from aunt for over a year despite having a positive UDS for methamphetamine. She denies any other drugs or alcohol. She claims that she smokes 1 pack a day of cigarettes. PAST PSYCHIATRIC HISTORY: Patient states that she has PTSD, anxiety and depression. She states that she has previously tried Paxil, Cymbalta and Prozac when she was a lot younger. She denies ever being admitted to the mental health unit and denies any previous suicide attempts. PMH: Ovarian cancer and fibromyalgia ALLERGIES: as per EMR CHEMICAL DEPENDENCY HISTORY: as per HPI FAMILY PSYCHIATRIC/SUBSTANCE USE HISTORY: She claims her dad has schizophrenia. SOCIAL HISTORY: She states that she was born and raised in [place] [facility] and completed up to 11th grade and then dropped out of high school. 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 At this time she currently collects state aid for her kids is unemployed has 6 kids, 3 of whom are autistic and currently lives with her ex- in apartment. MENTAL STATUS EXAM: General Appearance: Patient appears to be older than stated age is alert, directable and cooperative. Patient is tearful during the interview and appears to have poor hygiene and poor grooming. Behavior: Patient is calmly seated without any agitated behavior. Speech: Patient's speech is fluent and nonpressured. Soft tone Mood/Affect: Patient reports their mood is depressed, affect is congruent. Suicidality/Homicidality: Patient denies having any suicidal or homicidal ideation intent or plan. Perceptions: Patient denies any auditory or visual hallucinations. Though content/process: There is no evidence of any delusional thought content and thought process is linear and goal-directed. Patient is preoccupied with discharge and minimizing her symptoms. Memory and concentration: AOX3, grossly intact for the purposes of this session. Can spell "WORLD" backwards Judgment and insight: Poor/superficial STRENGTHS/WEAKNESSES: strength is that patient is resilient. Weaknesses that patient has chronic stressors and poor support. INTELLECT: average IMPRESSIONS: Major depressive disorder, current, moderate-severe Anxiety disorder unspecified Methamphetamine/stimulant use disorder PLAN: -Patient is admitted under voluntary status to MHU for stabilization of psychiatric symptoms and safety. Patient signed adult voluntary form and medication consent and is placed in patient's chart. -Medications : Will start patient on sertraline 25 mg daily for anxiety/mood with plan to increase as tolerated. Will also start patient on Remeron 7.5 mg daily at bedtime for insomnia mood and appetite -Ativan PRN for agitation/aggression -Patient was counselled on substance abuse however patient is currently denying any current methamphetamine use. -Patient was informed of the risks, benefits and side effects of the medication and patient verbally consented to taking the medications. Patient signed med consent form and was placed in chart. -NRT - nicotine patch -SW on board for discharge planning 04/14/19 13:59 04/14/19 14:00
[2019-04-14] MEDS: SERTRALINE 25 MG TAB PO SCH (14:33)
--- NOTE | 2019-04-14 14:52 | P.CONS ---
History of Present Illness - Reason for Consult Consult date: 04/14/19 - History of Present Illness Patient is a 34-year-old female with a past history of polysubstance abuse including methamphetamines and heroin presented to the ED with complaints of depression and suicidal ideation and self-harm. The patient had noted that she attempted to cut her left forearm and took multiple aspirin and Tylenol pills. Patient was seen in the mental health unit on 102. She noted feeling better since admission. She endorsed having a URI over the previous few days with sinus congestion and a sore throat. The patient also noted that after she had her children and 2012, she was notified that she may have had ovarian cancer. The patient is unable to recall the specific details but is worried that she may have a cancer since she never followed up. She notes that she was evaluated at both [facility] as well as her [facility]. She otherwise denied additional complaints including fever, chills, chest pain, shortness of breath. Review of Systems Pertinent positives and negatives as discussed in HPI, a complete review of systems was performed and all other systems are negative. Past Medical History Past Medical History: Fibromyalgia Additional Past Medical History / Comment(s): Ovarian cancer History of Any Multi-Drug Resistant Organisms: None Reported Past Surgical History: Appendectomy, Section, Tubal Ligation Additional Past Surgical History / Comment(s): left ovary removed Past Psychological History: Anxiety, Depression Smoking Status: Current every day smoker Past Alcohol Use History: Rare Past Drug Use History: None Reported Medications and Allergies Home Medications Medication Instructions Recorded Confirmed Type No Known Home Medications 04/13/19 04/13/19 History Allergies Allergy/AdvReac Type Severity Reaction Status Date / Time No Known Allergies Allergy Verified 04/13/19 16:19 Physical Exam Vitals: Vital Signs Temp Pulse Pulse Resp BP BP Pulse Ox 04/14/19 00:45 97.2 F L 96 18 105/68 99 04/13/19 19:45 76 18 99/51 97 04/13/19 15:42 98.1 F 90 18 138/87 100 Intake and Output 04/13/19 04/14/19 04/14/19 22:59 06:59 14:59 Other: Weight 54.431 kg General: non toxic, no distress, appears older than stated age, normal weight Derm: no unusual rashes/lesions no unusual ecchymoses, warm, dry Head: atraumatic, normocephalic, symmetric Eyes: EOMI, no lid lag, anicteric sclera, pupils equal round reactive to light ENT: Nose and ears atraumatic, no thrush, no pharyngeal erythema Neck: No thyromegaly, no cervical lymphadenopathy, trachea midline, supple Mouth: no lip lesion, mucus membranes moist, very poor dentition Cardiovascular: S1S2 reg, no murmur, positive posterior tibial pulse bilateral, no edema, capillary refill less than 2 seconds Lungs: CTA bilateral, no rhonchi, no rales , no accessory muscle use Abdominal: soft, nontender to palpation, no guarding, no appreciable organomegaly, normal bowel sounds Ext: no gross muscle atrophy, muscle strength 5 out of 5 in all 4 extremities grossly, no contractures, Neuro: CN II-XI grossly intact, light touch intact all 4 extremities, finger to nose within normal limits, Psych: Alert, oriented Results CBC & Chem 7: 04/13/19 16:46 04/13/19 16:46 Labs: Abnormal Lab Results - Last 24 Hours (Table) 04/13/19 04/13/19 Range/Units 16:46 16:46 Chloride 110 H (98-107) mmol/L Carbon Dioxide 20 L (22-30) mmol/L Urine Appearance Cloudy H (Clear) Urine Protein Trace H (Negative) Urine Blood Trace H (Negative) Urine RBC 22 H (0-5) /hpf Ur Squamous Epith Cells 13 H (0-4) /hpf Calcium Oxalate Crystal Rare H (None) /hpf Urine Mucus Few H (None) /hpf Ur Amphetamines Screen Detected H (NotDetected) U Methamphetamines Scrn Detected H (NotDetected) Assessment and Plan Plan: Depression, suicidal ideation, self-harm -As per psychiatry Polysubstance abuse -Advised patient on importance of cessation Possible history of malignancy -Obtain records from [facility] URI -Symptomatic management with cough drops and decongestants Thank you for allowing us to participate in the care of this patient. We will follow peripherally. Do not hesitate to contact us with questions. Someone can be reached from the [facility] hospitalist group at all hours of the day at [phone].
[2019-04-14] MEDS: MIRTAZAPINE 15 MG TAB PO SCH (20:34)
[2019-04-15] MEDS: NICOTINE 21MG/24HR PATCH TRANSDERM SCH (08:28)
[2019-04-15] MEDS: SERTRALINE 25 MG TAB PO SCH (08:29)
--- NOTE | 2019-04-15 10:44 | P.PN ---
Progress Note - Text Progress Note Date: 04/15/19 Interval History: Patient was seen attending group and was directable and agreeable to speak to scenario writer in the office. Patient was superficial this morning and states that "everything is going great" and was preoccupied with discharge asking several times to be discharged and was minimizing her suicide attempt. Patient claims that her mood has improved along with her anxiety. Patient did not offer any other complaints. Patient asked about the process to sign out AMA and scenario writer informed her of this process and her rights. Patient was preoccupied with her children and then missing appointments through [facility] for counseling and scenario writer referred patient to high school social studies teacher to assist with possibly rescheduling or any resources. Patient states that she did have poor coping skills and "made a mistake" when she tried to take her life prior to coming to the hospital. She admits to improved appetite and energy and states that she slept 6 hours last night. At this time patient denies any suicidal or homical ideations, intent or plan. Patient denies any auditory, visual hallucinations and denies any paranoia or delusions. Patient denies any side effects from the medications and has been compliant with meds. Mental Status Exam: General Appearance: Patient appears to be older than stated age is alert, directable and cooperative. Patient is tearful during the interview. Patient appears to have poor hygiene and poor grooming. Behavior: Patient is calmly seated without any agitated behavior. Tearful. Speech: Patient's speech is fluent and nonpressured. Soft tone Mood/Affect: Patient reports their mood is depressed, affect is congruent. Suicidality/Homicidality: Patient denies having any suicidal or homicidal ideation intent or plan. Perceptions: Patient denies any auditory or visual hallucinations. Though content/process: There is no evidence of any delusional thought content and thought process is linear and goal-directed. Patient is preoccupied with discharge and minimizing her symptoms. Memory and concentration: AOX3, grossly intact for the purposes of this session. Judgment and insight: Poor/superficial Assessment Major depressive disorder, current, moderate-severe Anxiety disorder unspecified Methamphetamine/stimulant use disorder Plan: -Patient continues to meet criteria for inpatient psychiatric admission for symptom stabilization and safety. Patient has signed adult voluntary form and medication consent and was placed in patient's chart. -Medications: Increased Zoloft to 50 mg daily for anxiety/mood and plan to increase as tolerated. Will continue patient on Remeron 7.5 mg daily at nighttime for insomnia mood and appetite, increase as tolerated. -When necessary Ativan for agitation/aggression. -NRT - nicotine patch -SW on board for discharge planning. Likely discharge next week. Patient was informed to go speak with high school social studies teacher about concerns with her children and their appointments in their care at home.
[2019-04-15] MEDS: LORazepam 0.5 MG TAB PO PRN ×2 (11:16→21:00)
[2019-04-15] MEDS: ACETAMINOPHEN TAB 325 MG TAB PO PRN ×2 (11:16→17:43)
[2019-04-15 13:46] LABS: Hemoglobin A1C 5.1 % (4.0-6.0)
[2019-04-15] MEDS ORDERED: BENZOCAINE/MENTHOL LOZENG 1 EACH LOZENGE MUCOUS MEM PRN (15:11)
[2019-04-15] MEDS: LORATADINE 10 MG TAB PO PRN (17:41)
[2019-04-15] MEDS: MIRTAZAPINE 15 MG TAB PO SCH (20:16)
[2019-04-16] MEDS: NICOTINE 21MG/24HR PATCH TRANSDERM SCH (07:53)
[2019-04-16] MEDS: SERTRALINE 50 MG TAB PO SCH (07:54)
[2019-04-16] MEDS: FLUTICASONE 50MCG/SPRAY NASAL 16GM EA NOSTRIL SCH (07:54)
[2019-04-16] MEDS ORDERED: SERTRALINE 100 MG TAB PO SCH (09:00)
[2019-04-16] MEDS: LORazepam 0.5 MG TAB PO PRN ×2 (10:38→21:44)
--- NOTE | 2019-04-16 12:56 | PN ---
PROGRESS NOTE DATE OF SERVICE: 04/16/2019 CHIEF COMPLAINT: The patient had depression. She had made a suicide/self-harm gesture by ingesting 6 tablets of aspirin and superficially cutting her left wrist. INTERVAL HISTORY: Patient has been doing fair. She had a quiet evening last night. She comes out in the day area. She interacts with others. She has been attending groups. She slept fair last night. Today she has been up. It is noted in the 9:30 group this morning she was described as: Anxious, defensive, appropriate, agitated. In the 11:00 group she was noted to be attentive, initiating, appropriate and with a blunted affect. Overall, patient seems to be making progress. She says that her mood is better. I asked her about Dr. Todd note from yesterday where he indicated she was "minimizing her suicide attempt". She acknowledged that she had gotten into significant stress issues and that she does need to make some changes to keep from getting into that kind of thinking again. She states that she tolerates her psychotropic medications. MENTAL STATUS: Patient sat with some restlessness. She had good eye contact. She answered questions appropriately. Her thoughts were clear. Her affect was somewhat blunted. Her mood reserved. She did not appear to be significantly distressed. There was no indication of thought disorder. Cognition was clear. ASSESSMENT: I will continue the current diagnosis and treatment plan. We will continue to engage the patient in individual and group therapeutic activities. I reviewed the patient's medications including indications for her antidepressant as well as dosing strategy. We discussed that it may take a number of weeks for progressive benefits from her antidepressant. She has tolerated the start up of Zoloft. She anticipates outpatient followup through [facility] where she is being seen for two of her children. She does have Medicaid. We will continue to focus on stabilization and discharge planning. MMODL / IJN: [id number] /
[2019-04-16] MEDS: LORATADINE 10 MG TAB PO PRN (18:49)
[2019-04-16] MEDS: MIRTAZAPINE 15 MG TAB PO SCH (20:56)
[2019-04-17] MEDS: FLUTICASONE 50MCG/SPRAY NASAL 16GM EA NOSTRIL SCH (08:19)
[2019-04-17] MEDS: SERTRALINE 50 MG TAB PO SCH (08:19)
[2019-04-17] MEDS: NICOTINE 21MG/24HR PATCH TRANSDERM SCH (08:19)
[2019-04-17] MEDS: LORazepam 0.5 MG TAB PO PRN ×2 (09:34→20:35)
--- NOTE | 2019-04-17 11:46 | P.PN ---
Progress Note - Text Interval history: The patient is found in group she follows me to an interview room. She reports that her mood is improving. She does describe feelings of anxiety at times. She reviews potential options for treating her anxiety. Discussed possibly using Vistaril but she declines that as an option. She wanted to discuss ADHD medicine. She states that Strattera was helpful in the past and would consider going on that again. She reports that she slept last night staff recorded she slept 6 hours. She states appetite has been increased most likely due to Remeron. She is hoping to gain more pounds as she has been underweight. Mental status exam: The patient is a thin female appearing her stated age. She has poor dentition and is missing teeth. She is dressed in her own clothing hygiene grooming adequate. She is pleasant cooperative and easily directed during the session. She indicates her mood is improved she states she's no longer in a "fog". She reports no suicidal or homicidal ideation intent or plan. She reports no auditory or visual hallucinations or any specific delusions. She demonstrates no verbal or physical aggressiveness. She demonstrates future oriented thinking. Plan: The patient will continue on her current psychotropic medication. Consideration could be given to titrating the Zoloft further. She may benefit from use of Strattera as an outpatient. We will continue to monitor her for safety and encourage full participation in the milieu. Vital signs reviewed.
--- NOTE | 2019-04-17 20:03 | P.PN ---
Progress Note - Text Progress Note Date: 04/17/19 (Delayed charting seen at approximately 1245) Hospitalist Note Patient seen and examined. She complains of outpouching below her left eye that started approximately 5 days ago. It is itching, painful, it makes her eyes feel dry. She is not having any blurry vision, loss of vision, drainage from her eye. She does not have a history of eye infections. Vital signs reviewed General: non toxic, no distress, appears at stated age Derm: warm, dry Head: atraumatic, normocephalic, symmetric Eyes: EOMI, no lid lag, anicteric sclera, pupils equal round reactive to light, outpouching of the lower lash line of the left eye, not able to express any purulent fluid, no conjunctival injection or drainage noted Mouth: no lip lesion, mucus membranes moist Assessment/Plan: 1. Suspect left eye stye-Warm compresses 4 times daily, artificial tears as needed, no eye makeup, if no improvement patient follow-up with ophthalmology
[2019-04-17] MEDS: MIRTAZAPINE 15 MG TAB PO SCH (20:34)
[2019-04-18 06:45] VITALS: RESP 16
[2019-04-18] MEDS: SERTRALINE 50 MG TAB PO SCH (07:43)
[2019-04-18] MEDS: NICOTINE 21MG/24HR PATCH TRANSDERM SCH (07:43)
[2019-04-18] MEDS: FLUTICASONE 50MCG/SPRAY NASAL 16GM EA NOSTRIL SCH (07:43)
[2019-04-18] MEDS: ARTIFICIAL TEARS-HYPROMELLOSE DROPS 15 ML BTL BOTH EYES PRN ×2 (09:31→16:03)
[2019-04-18] MEDS: LORazepam 0.5 MG TAB PO PRN ×2 (09:31→20:09)
[2019-04-18] MEDS: LORATADINE 10 MG TAB PO PRN (09:31)
--- NOTE | 2019-04-18 10:58 | P.PN ---
Progress Note - Text Interval history: The patient is found in the hallway she follows me to an interview room. She indicates her mood is good. She is looking forward to being discharged and hope sits tomorrow. She indicates she has a support meeting set up tomorrow morning. She states that she slept well last night staff reports she slept at least 6 hours. Appetite is stable she is hoping to gain weight. She is looking forward to a visit from her this evening. She has no questions or concerns regarding medication. We discussed possibly titrating the Zoloft further but she does not wish to change the dose. Mental status exam: The patient is dressed in her own clothing hygiene grooming adequate. She is wearing makeup today. Eye contact is appropriate speech is fluent spontaneous nonpressured. She reports her mood is good she denies having any suicidal ideation intent or plan. She reports no homicidal ideation intent or plan. She reports no auditory or visual hallucinations or any specific delusions. There is no observed evidence of psychosis. She does not appear hypomanic or manic. Insight and judgment improving. He demonstrates no verbal or physical aggressiveness. She demonstrates future oriented thinking. Plan: The patient will continue on her current psychotropic medication. She is asking to keep the Zoloft at its current dose of 50 mg rather than titrating. She is encouraged to continue participating in the milieu. We will monitor her for safety. She appears to be stabilizing.
[2019-04-18] MEDS: NICOTINE 14MG/24HR PATCH TRANSDERM SCH (11:04)
[2019-04-18] MEDS: MIRTAZAPINE 15 MG TAB PO SCH (20:08)
[2019-04-19 06:43] VITALS: BP 97/59; PULSE 78; TEMP 98.8
[2019-04-19] MEDS: NICOTINE 14MG/24HR PATCH TRANSDERM SCH (07:56)
[2019-04-19] MEDS: SERTRALINE 50 MG TAB PO SCH (07:57)
[2019-04-19] MEDS: FLUTICASONE 50MCG/SPRAY NASAL 16GM EA NOSTRIL SCH (07:57)
[2019-04-19] MEDS: LORazepam 0.5 MG TAB PO PRN (08:38)
--- NOTE | 2019-04-19 09:29 | P.DS ---
Providers Date of admission: 04/13/19 22:40 Expected date of discharge: 04/19/19 Attending physician: Ghulam Todd MD Consults: 04/14/19 00:07 Consult Physician Routine Consulting Provider: Marnie Sorensen Consult Reason/Comments: H&P and medical Do you want consulting provider notified?: Already Contacted Primary care physician: Stated None - Discharge Diagnosis(es) (1) Major depressive disorder, severe Current Visit: Yes Status: Acute Priority: High (2) Anxiety Current Visit: Yes Status: Acute Priority: Medium (3) Methamphetamine abuse Current Visit: Yes Status: Acute Priority: Low Hospital Course: Admission HPI: Patient is a 34-year-old female who has 6 kids with 3 being autistic, currently lives with her ex- who is now her boyfriend in an apartment and collects state aid and is unemployed. Patient presented to the hospital with severe chronic depression with suicidal ideations and attempt. Patient was presented on a petition by her [id number]-law who states that patient has been severely depressed and anxious and was threatening suicide, patient cut her wrists and took pills. Patient was agreeable to be seen today for interview was directable however was tearful and appeared to be depressed during the interview. Patient states that she's had an increase in her depression for the past month and claims that yesterday she had a "really bad day" and states that people around her were telling her that she is not good enough and that she needs help. She states that her boyfriend was trying to tell her to go to counseling however she did not want to go. She states that she cut her wrist with a scissors and also talk for Tylenols in 6 aspirins in an overdose attempt. She admits to chronic anxiety going on for years. She admits to ongoing depression and spoke about having lots of responsibility and her children being dependent on her especially her 3 autistic kids. She states that she does not have much help in taking care of her children by others. She claims that she has or concentration however denies any guilt. At this time she denies any manic symptoms or any manic episodes in the past. She admits to poor sleep at night and poor appetite. Patient denies any suicidal or homicidal ideations intent or plan. At this time patient denies any auditory or visual hallucinations. Patient denies any flight of ideas racing thoughts and increased in goal directed behavior. Patient admits to using methamphetamine in the past however claims that she's been sober from aunt for over a year despite having a positive UDS for methamphetamine. She denies any other drugs or alcohol. She claims that she smokes 1 pack a day of cigarettes. Hospital course: Upon admission to the unit patient was initially tearful, depressed and isolative. Patient was however directable and agreeable to commence treatment. Patient got along well with other patients on the unit and followed unit protocol. Patient was compliant with the medications and denied any side effects throughout hospital course. Patient was started on Zoloft and titrated up to 50 mg daily for anxiety and mood. Patient was offered to have the medication increased further however patient declined. Patient was also started on Remeron 7.5 mg and increased to 15 mg daily at bedtime for insomnia mood and appetite. Patient was also started on melatonin 3 mg daily at bedtime for sleep. Patient spoke of her stressors and engaged in therapy both group and individual. Patient did have some anxiety at bedtime due to the fact that patient missed her children and her home however was able to sleep and did receive by mouth Ativan at times. Patient was also seen by medical team for history and physical exam. Throughout the course of the hospitalization patient gradually improved with regards to mood, anxiety, sleep and became future oriented with improved insight and judgment. Patient stated that she had improved coping skills and distress tolerance and also noted the fact that she has no numbers and other support that she can contact if she is needing help. On the day of discharge patient denied any suicidal or homicidal ideations intent or plan denied any auditory or visual hallucinations. Patient endorsed wanting to live for her family and her health. The patient denied any access to guns or weapons. Patient denied any paranoia and did not endorse any delusions. Patient does have a significant history of substance abuse as her UDS was positive for methamphetamines and was counseled on abstaining from all substances including alcohol and marijuana. Patient however agreed but stated that she is not using any substances. Patient was also counseled on the medications and need for regular compliance and was encouraged to follow-up with their outpatient appointment for mental health and also for primary care. Prior to discharge a family meeting will be arranged by nursing home social worker to answer any questions and ensure safety upon discharge. Mental status exam: General Appearance: Patient appears to be thin and older than stated age is alert, pleasant, and cooperative. Patient is in no acute distress and has improved hygiene and grooming Behavior: Patient is calmly seated without any agitated behavior. Speech: Patient's speech is fluent and nonpressured. Mood/Affect: Patient reports their mood is "much better", affect is congruent and euthymic. Suicidality/Homicidality: Patient denies having any suicidal or homicidal ideation intent or plan. Perceptions: Patient denies any auditory or visual hallucinations. Though content/process: There is no evidence of any delusional thought content and thought process is linear and goal-directed. Memory and concentration: AOX3, grossly intact for the purposes of this session. Can spell "WORLD" backwards correctly. Judgment and insight: fair, improved Impression: Major depressive disorder, recurrent, severe Anxiety disorder unspecified Methamphetamine/stimulant use disorder Plan: -Continue with discharge today as patient has improved and stabilized psy chiatrically and is not currently an imminent threat to herself and/or others. -Continue medications: To continue on Zoloft 50 mg daily for anxiety/mood. Patient was advised that this medication can be titrated up if necessary in the future by her psychiatrist. Patient also was increased up to Remeron 15 mg daily for insomnia mood and appetite. Melatonin 3 mg nightly for sleep. -Patient was counseled on the need for medication compliance and appropriate follow-up at mental health and also primary care for medical issues. Patient verbalized understanding and agreed. -Social work to arrange for and conduct family meeting to ensure safety upon discharge and answer any questions/concerns. Social work also to arrange for patients follow up appointments with [facility] for psychiatric care along with follow up with primary care provider. Patient was also encouraged to attend support groups through [facility] for depression/anxiety along with support groups for parents with children with special needs. -Patient counseled on abstaining from recreational drugs and marijuana and alcohol. Was informed/educated on the adverse effects on their physical and mental health. She'll verbally understood and agreed. -Patient was instructed to return to the hospital or seek immediate medical care if their psychiatric or medical systems do worsen or reoccur. Allergies Allergy/AdvReac Type Severity Reaction Status Date / Time No Known Allergies Allergy Verified 04/13/19 16:19 Laboratory Results WBC 10.0 k/uL (3.8-10.6) 10/01/19 16:46 RBC 4.41 m/uL (3.80-5.40) 04/13/19 16:46 Hgb 13.3 gm/dL (11.4-16.0) 04/13/19 16:46 Hct 42.1 % (34.0-46.0) 04/13/19 16:46 MCV 95.6 fL (80.0-100.0) 04/13/19 16:46 MCH 30.1 pg (25.0-35.0) 04/13/19 16:46 MCHC 31.5 g/dL (31.0-37.0) 04/13/19 16:46 RDW 14.7 % (11.5-15.5) 04/13/19 16:46 Plt Count 228 k/uL (150-450) 04/13/19 16:46 Neutrophils % 66 % 04/13/19 16:46 Lymphocytes % 23 % 04/13/19 16:46 Monocytes % 4 % 04/13/19 16:46 Eosinophils % 2 % 04/13/19 16:46 Basophils % 1 % 04/13/19 16:46 Neutrophils # 6.6 k/uL (1.3-7.7) 04/13/19 16:46 Lymphocytes # 2.3 k/uL (1.0-4.8) 04/13/19 16:46 Monocytes # 0.4 k/uL (0-1.0) 04/13/19 16:46 Eosinophils # 0.2 k/uL (0-0.7) 04/13/19 16:46 Basophils # 0.1 k/uL (0-0.2) 04/13/19 16:46 Sodium 140 mmol/L (137-145) 04/13/19 16:46 Potassium 4.0 mmol/L (3.5-5.1) 04/13/19 16:46 Chloride 110 mmol/L (98-107) H 04/13/19 16:46 Carbon Dioxide 20 mmol/L (22-30) L 04/13/19 16:46 Anion Gap 10 mmol/L 04/13/19 16:46 BUN 10 mg/dL (7-17) 04/13/19 16:46 Creatinine 0.67 mg/dL (0.52-1.04) 04/13/19 16:46 Est GFR (CKD-EPI)AfAm >90 (>60 ml/min/1.73 sqM) 04/13/19 16:46 Est GFR (CKD-EPI)NonAf >90 (>60 ml/min/1.73 sqM) 04/13/19 16:46 Glucose 80 mg/dL (74-99) 04/13/19 16:[address] Glu mg/dL 100 04/13/19 16:46 Hemoglobin A1c 5.1 % (4.0-6.0) 04/13/19 16:46 Calcium 9.3 mg/dL (8.4-10.2) 04/13/19 16:46 Triglycerides 87 mg/dL (<150) 04/13/19 16:46 Cholesterol 167 mg/dL (<200) 04/13/19 16:46 LDL Cholesterol, Calc 96 mg/dL (0-99) 04/13/19 16:46 HDL Cholesterol 54 mg/dL (40-60) 04/13/19 16:46 TSH 1.070 mIU/L (0.465-4.680) 04/13/19 16:46 Urine Color Yellow 04/13/19 16:46 Urine Appearance Cloudy (Clear) H 04/13/19 16:46 Urine pH 6.0 (5.0-8.0) 04/13/19 16:46 Ur Specific [place] 1.029 (1.001-1.035) 04/13/19 16:46 Urine Protein Trace (Negative) H 04/13/19 16:46 Urine Glucose (UA) Negative (Negative) 04/13/19 16:46 Urine Ketones Negative (Negative) 04/13/19 16:46 Urine Blood Trace (Negative) H 04/13/19 16:46 Urine Nitrite Negative (Negative) 04/13/19 16:46 Urine Bilirubin Negative (Negative) 04/13/19 16:46 Urine Urobilinogen 2.0 mg/dL (<2.0) 04/13/19 16:46 Ur Leukocyte Esterase Negative (Negative) 04/13/19 16:46 Urine RBC 22 /hpf (0-5) H 04/13/19 16:46 Urine WBC 3 /hpf (0-5) 04/13/19 16:46 Ur Squamous Epith Cells 13 /hpf (0-4) H 04/13/19 16:46 Calcium Oxalate Crystal Rare /hpf (None) H 04/13/19 16:46 Urine Mucus Few /hpf (None) H 04/13/19 16:46 Urine HCG, Qual Not Detected (Not Detectd) 04/13/19 16:46 Salicylates 25.6 mg/dL 04/13/19 19:30 Urine Opiates Screen Not Detected (NotDetected) 04/13/19 16:46 Ur Oxycodone Screen Not Detected (NotDetected) 04/13/19 16:46 Urine Methadone Screen Not Detected (NotDetected) 04/13/19 16:46 Ur Propoxyphene Screen Not Detected (NotDetected) 04/13/19 16:46 Acetaminophen <10.0 ug/mL 04/13/19 16:46 Ur Barbiturates Screen Not Detected (NotDetected) 04/13/19 16:46 U Tricyclic Antidepress Not Detected (NotDetected) 04/13/19 16:46 Ur Phencyclidine Scrn Not Detected (NotDetected) 04/13/19 16:46 Ur Amphetamines Screen Detected (NotDetected) H 04/13/19 16:46 U Methamphetamines Scrn Detected (NotDetected) H 04/13/19 16:46 U Benzodiazepines Scrn Not Detected (NotDetected) 04/13/19 16:46 Urine Cocaine Screen Not Detected (NotDetected) 04/13/19 16:46 U Marijuana (THC) Screen Not Detected (NotDetected) 04/13/19 16:46 Serum Alcohol <10 mg/dL 04/13/19 16:46 Vital Signs Temp 98.8 F 04/19/19 06:40 Pulse 78 04/19/19 06:40 Resp 16 04/19/19 06:40 BP 97/59 04/19/19 06:40 Pulse Ox 99 04/14/19 00:45 Intake & Output 04/18/19 04/19/19 04/19/19 18:59 06:59 18:59 Weight 53.9 kg Patient Condition at Discharge: Stable Plan - Discharge Summary New Discharge Prescriptions: New Artificial Tears-Hypromellose [Artificial Tear Drops] 2 drops BOTH EYES QID PRN #1 bottle PRN Reason: Dry Eye(S) Loratadine [Claritin] 10 mg PO DAILY PRN 28 Days tab PRN Reason: Congestion Fluticasone Nasal [place] [Flonase Nasal [place]] 2 spray EA NOSTRIL DAILY #1 spr Nicotine 14Mg/24Hr Patch [Habitrol] 1 patch TRANSDERM DAILY 14 Days patch Melatonin 3 mg PO HS 28 Days tablet Mirtazapine [Remeron] 15 mg PO HS 28 Days tab Sertraline [Zoloft] 50 mg PO DAILY 28 Days tab Discharge Medication List Artificial Tears-Hypromellose [Artificial Tear Drops] 2 drops BOTH EYES QID PRN #1 bottle 04/19/19 [Rx] Fluticasone Nasal [place] [Flonase Nasal [place]] 2 spray EA NOSTRIL DAILY #1 spr 04/19/19 [Rx] Loratadine [Claritin] 10 mg PO DAILY PRN 28 Days tab 04/19/19 [Rx] Melatonin 3 mg PO HS 28 Days tablet 04/19/19 [Rx] Mirtazapine [Remeron] 15 mg PO HS 28 Days tab 04/19/19 [Rx] Nicotine 14Mg/24Hr Patch [Habitrol] 1 patch TRANSDERM DAILY 14 Days patch 04/19/19 [Rx] Sertraline [Zoloft] 50 mg PO DAILY 28 Days tab 04/19/19 [Rx] Follow up Appointment(s)/Referral(s): [facility] [NON-STAFF] - 1 Week Patient Instructions/Handouts: Suicide Prevention (DC) Activity/Diet/Wound Care/Special Instructions: Activity and diet as tolerated. Avoid the use of street drugs and alcohol. Take all medications as prescribed. When you are in need of refills on your medications please contact your medical provider and/or outpatient psychiatrist to have this done. Please go to scheduled outpatient appointment for aftercare treatment. If symptoms return or become worse, call the crisis line at and/or go to the nearest emergency room for evaluation. Discharge Disposition: HOME SELF-CARE
[2019-04-19] MEDS ORDERED: MIRTAZAPINE 15 MG TAB PO SCH (21:00)
[2019-04-19] MEDS ORDERED: MELATONIN 3 MG TABLET PO SCH (21:00)
== END 2019-04-19 09:44 | disposition home or self-care (01) | DRG 885 ==
LOC: EC 15:31 → 3MHU 22:40
PROVIDERS: ADMIT Psychiatry & Neurology Psychiatry; ATTEND Psychiatry & Neurology Psychiatry
DX: F33.2 Major depressive disorder, recurrent severe without psychotic features (principal); Z68.1 Body mass index [BMI] 19.9 or less, adult; F15.10 Other stimulant abuse, uncomplicated; R63.6 Underweight; S61.512A Laceration without foreign body of left wrist, initial encounter; T39.1X1A Poisoning by 4-Aminophenol derivatives, accidental (unintentional), initial encounter; T39.011A Poisoning by aspirin, accidental (unintentional), initial encounter; J06.9 Acute upper respiratory infection, unspecified; F41.9 Anxiety disorder, unspecified; F43.10 Post-traumatic stress disorder, unspecified; G47.00 Insomnia, unspecified; M79.7 Fibromyalgia; Z71.51 Drug abuse counseling and surveillance of drug abuser; F17.210 Nicotine dependence, cigarettes, uncomplicated; Z71.6 Tobacco abuse counseling; Z85.43 Personal history of malignant neoplasm of ovary; Z98.891 History of uterine scar from previous surgery; Z98.51 Tubal ligation status; Z90.49 Acquired absence of other specified parts of digestive tract; Z90.721 Acquired absence of ovaries, unilateral; X78.9XXA Intentional self-harm by unspecified sharp object, initial encounter; Z81.8 Family history of other mental and behavioral disorders
CPT/HCPCS: 36415; 80048; 80061; 80306; 80320; 80329; 81001; 81025; 82075; 83036; 83520; 84443; 85025; 93005; 96372; 99285

== ENCOUNTER 2022-12-04 18:12 | Emergency (ER) | payer MEDICAID, OTHER ==
[2022-12-04 18:35] VITALS: BP 129/84; PULSE 98; RESP 17; TEMP 97.9
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
[2022-12-04] MEDS ORDERED: ONDANSETRON ODT 4 MG TAB PO STA (19:35)
[2022-12-04] MEDS ORDERED: ACETAMINOPHEN TAB 500 MG TAB PO STA (19:36)
--- NOTE | 2022-12-04 21:05 | XR ---
EXAMINATION TYPE: XR facial bones complete DATE OF EXAM: 12/04/2022 COMPARISON: None HISTORY: Forehead injury TECHNIQUE: Three-view facial bones FINDINGS: No acute fractures are evident. Orbits appear symmetrical. Nasal bones appear intact. Paran elli sinuses appear clear. Mastoid air cells appear clear. Sella appears unremarkable. Nasal bones an d maxillary spine are intact. The patient is edentulous. IMPRESSION: 1. No acute osseous abnormality
== END 2022-12-04 21:47 | disposition home or self-care (01) ==
LOC: EC 18:12
DX: S09.90XA Unspecified injury of head, initial encounter (principal); F17.200 Nicotine dependence, unspecified, uncomplicated; F12.90 Cannabis use, unspecified, uncomplicated; F15.20 Other stimulant dependence, uncomplicated; Z86.59 Personal history of other mental and behavioral disorders; W18.30XA Fall on same level, unspecified, initial encounter
CPT/HCPCS: 70150; 99283

== ENCOUNTER 2023-01-05 13:55 | Emergency (ER) | payer OTHER ==
[2023-01-05 15:00] VITALS: TEMP 98
[2023-01-05] MEDS ORDERED: MORPHINE SULFATE 2 MG/ML SYRINGE IVP STA (15:22)
[2023-01-05] MEDS ORDERED: SODIUM CHLORIDE 0.9% 1,000 ML IV STA (15:22)
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
[2023-01-05] MEDS ORDERED: AMOXIC-POT CLAV 875-125MG 1 EACH TAB PO STA (16:28)
[2023-01-05] MEDS ORDERED: HYDROcodone/APAP 5-325MG 1 EACH TAB PO STA (16:44)
[2023-01-05 16:52] VITALS: BP 122/98; PULSE 84; RESP 19
== END 2023-01-05 16:59 | disposition home or self-care (01) ==
LOC: EC 13:55
DX: S02.32XA Fracture of orbital floor, left side, initial encounter for closed fracture (principal); S02.401A Maxillary fracture, unspecified side, initial encounter for closed fracture; R00.2 Palpitations; F41.9 Anxiety disorder, unspecified; F32.A Depression, unspecified; F17.200 Nicotine dependence, unspecified, uncomplicated; Z79.899 Other long term (current) drug therapy; W22.8XXA Striking against or struck by other objects, initial encounter
CPT/HCPCS: 93005; 70486; 70450; 99285; 96374; 96361; J2270